=== PATIENT | female | born 1945 | race African-American/Black ===

== ENCOUNTER 2022-10-16 09:15 | Inpatient (IN) ==
[2022-10-16 09:37] LABS: ABS Basophils 0.1 10^3/uL (0.0-0.1); ABS Eosinophils 0.1 10^3/uL (0.0-0.5); ABS Lymphocytes 1.4 10^3/uL (1.0-4.8); ABS Neutrophils 6.2 10^3/uL (1.5-7.6); Eosinophil % 0.8 %; Hematocrit 36.8 % (35-45); Hemoglobin 12.3 g/dL (11.5-14.3); Lymphocyte % 16.2 %; Mean Corpuscular Hemoglobin 30.1 pg (27-33); Mean Corpuscular Hgb Conc 33.5 g/dL (31-36); Mean Corpuscular Volume 89.8 fL (80-97); Mean Platelet Volume 8.9 fL (7.5-11.2); Platelet Count 307 10^3/uL (150-450); Red Cell Distribution Width 12.7 % (12-17); White Blood Count 8.7 10^3/uL (3.8-11.8)
[2022-10-16 09:45] LABS: INR 1.06 (0.88-1.18)
[2022-10-16 09:55] LABS: Albumin 4.1 g/dL (3.2-5.2); Albumin/Globulin Ratio 1.4 (1-3); Calcium 10.1 mg/dL (8.6-10.3); Creatinine, Serum 1.16 mg/dL (0.51-0.95); Potassium 3.4 mmol/L (3.5-5.0); Total Bilirubin 1.5 mg/dL (0.2-1.0); Total Protein 7.1 g/dL (6.4-8.9)
[2022-10-16] MEDS ORDERED: Heparin DRIP 25,000 UNITS BAG 25,000 UNITS/500 ML BAG ONE (10:39)
[2022-10-16] MEDS ORDERED: Heparin DRIP 25,000 UNITS BAG 25,000 UNITS/500 ML BAG IV SCH (10:45)
[2022-10-16] MEDS ORDERED: Heparin 5000 UNITS/ML 1 mL VIAL IV SCH (11:00)
[2022-10-16 11:11] LABS: Creatinine, Serum 1.14 mg/dL (0.51-0.95)
[2022-10-16] MEDS ORDERED: Flumazenil 0.5 mg/5 ml 0.1 MG/ML 5 ml VIAL IV PRN (11:24)
[2022-10-16] MEDS ORDERED: Midazolam 10 mg/10 ml VIAL 1 mg/ml 10 ml VIAL (10 mg) IV SLOW PU ONE (11:24)
[2022-10-16] MEDS ORDERED: Naloxone 0.4 mg VIAL 0.4 mg/ml 1 ml VIAL IV PUSH PRN (11:24)
[2022-10-16] MEDS ORDERED: fentaNYL 100 mcg/2 ml 50 MCG/ML VIAL IV SLOW PU ONE (11:24)
[2022-10-16] MEDS ORDERED: fentaNYL 100 mcg/2 ml 50 MCG/ML VIAL ONE ×2 (11:26→12:33)
[2022-10-16] MEDS ORDERED: Midazolam 5 mg/5 ml VIAL 1 mg/ml 5 ml VIAL (5 mg) ONE (11:26)
[2022-10-16] MEDS ORDERED: niCARdipine 0.1MG/ML IVPREMIX 20 MG/200 ML BAG IV ONE (11:27)
[2022-10-16] MEDS ORDERED: Heparin 2 UNITS/ML 1000 mls 3,000 ML IV ONE (11:27)
[2022-10-16] MEDS ORDERED: Lidocaine 1% MPF 5 ML VIAL ONE ×2 (11:27→12:31)
[2022-10-16] MEDS ORDERED: nitroGLYCERIN DRIP 25,000 MCG/250 ML BTL ONE (11:27)
[2022-10-16] MEDS ORDERED: Iohexol 350 (CONTRAST) 200 ML MDV IV ONE (11:27)
[2022-10-16] MEDS ORDERED: Heparin 1,000 UNIT/ML 10 ml (10,000 UNITS) CATHLAB/DIALYSIS ONE (12:07)
[2022-10-16] MEDS ORDERED: Eptifibatide IV (Load dose) 2 MG/ML 10 ml VIAL ONE ×2 (12:23→13:01)
[2022-10-16] MEDS ORDERED: Iohexol 350 (CONTRAST) 100 ML PAK IV ONE (13:03)
[2022-10-16] MEDS ORDERED: Ondansetron 4 mg VIAL 2 MG/ML 2 ml VIAL IV PRN (14:00)
[2022-10-16] MEDS: NS 0.9% 1000 ml BAG 1,000 ML IV SCH (16:06)
[2022-10-17] MEDS ORDERED: Polyethylene Glycol 3350 17 GM PACKET ONE (01:27)
[2022-10-17] MEDS: Polyethylene Glycol 3350 17 GM PACKET PO SCH ×2 (01:32→11:01)
[2022-10-17] MEDS: NS 0.9% 1000 ml BAG 1,000 ML IV SCH (02:54)
[2022-10-17 04:50] LABS: ABS Eosinophils 0.1 10^3/uL (0.0-0.5); ABS Lymphocytes 1.1 10^3/uL (1.0-4.8); ABS Monocytes 1.1 10^3/uL (0.0-0.9); ABS Neutrophils 6.8 10^3/uL (1.5-7.6); Eosinophil % 1.3 %; Hematocrit 28.9 % (35-45); Hemoglobin 9.9 g/dL (11.5-14.3); Lymphocyte % 12.5 %; Mean Corpuscular Hemoglobin 30.5 pg (27-33); Mean Corpuscular Hgb Conc 34.1 g/dL (31-36); Mean Corpuscular Volume 89.6 fL (80-97); Mean Platelet Volume 8.6 fL (7.5-11.2); Platelet Count 243 10^3/uL (150-450); Red Blood Count 3.23 10^6/uL (3.63-4.92); Red Cell Distribution Width 12.5 % (12-17); White Blood Count 9.2 10^3/uL (3.8-11.8)
[2022-10-17 05:06] LABS: Calcium 7.9 mg/dL (8.6-10.3); Creatinine, Serum 0.68 mg/dL (0.51-0.95); Magnesium 1.4 mg/dL (1.9-2.7); Potassium 2.9 mmol/L (3.5-5.0); eGFR CKD-EPI 88.5 (>60)
[2022-10-17] MEDS ORDERED: Magnesium Sulfate IV 3 GM in NS 0.9% 100 ml BAG 100 ML IVPB ONE (05:33)
[2022-10-17] MEDS: KCL 20 MEQ/100 ML IVPREMIX 20 MEQ/100 ML BAG IV SCH ×3 (06:00→12:43)
[2022-10-17 07:59] LABS: Albumin 3.1 g/dL (3.2-5.2); Albumin/Globulin Ratio 1.4 (1-3); Globulin 2.2 g/dL (2-4); Total Bilirubin 1.5 mg/dL (0.2-1.0); Total Protein 5.3 g/dL (6.4-8.9)
[2022-10-17 13:06] LABS: ABS Eosinophils 0.1 10^3/uL (0.0-0.5); ABS Lymphocytes 1.2 10^3/uL (1.0-4.8); ABS Neutrophils 9.9 10^3/uL (1.5-7.6); Eosinophil % 0.8 %; Hematocrit 32.5 % (35-45); Hemoglobin 10.5 g/dL (11.5-14.3); Lymphocyte % 9.8 %; Mean Corpuscular Hemoglobin 29.3 pg (27-33); Mean Corpuscular Hgb Conc 32.2 g/dL (31-36); Mean Corpuscular Volume 90.9 fL (80-97); Mean Platelet Volume 8.9 fL (7.5-11.2); Platelet Count 279 10^3/uL (150-450); Red Blood Count 3.58 10^6/uL (3.63-4.92); Red Cell Distribution Width 12.7 % (12-17); White Blood Count 12.2 10^3/uL (3.8-11.8)
[2022-10-17 17:38] LABS: Ferritin 333.8 ng/mL (11-307)
[2022-10-18 05:43] LABS: ABS Basophils 0.1 10^3/uL (0.0-0.1); ABS Eosinophils 0.2 10^3/uL (0.0-0.5); ABS Monocytes 1.1 10^3/uL (0.0-0.9); ABS Neutrophils 6.2 10^3/uL (1.5-7.6); Eosinophil % 2.4 %; Hemoglobin 9.9 g/dL (11.5-14.3); Lymphocyte % 20.9 %; Mean Corpuscular Hemoglobin 29.8 pg (27-33); Mean Corpuscular Volume 90.3 fL (80-97); Platelet Count 256 10^3/uL (150-450); Red Blood Count 3.32 10^6/uL (3.63-4.92); Red Cell Distribution Width 12.8 % (12-17); White Blood Count 9.6 10^3/uL (3.8-11.8)
[2022-10-18 06:00] LABS: Albumin 3.4 g/dL (3.2-5.2); Albumin/Globulin Ratio 1.2 (1-3); Calcium 8.5 mg/dL (8.6-10.3); Creatinine, Serum 0.84 mg/dL (0.51-0.95); Globulin 2.8 g/dL (2-4); Potassium 4.1 mmol/L (3.5-5.0); Total Bilirubin 1.6 mg/dL (0.2-1.0); Total Protein 6.2 g/dL (6.4-8.9); eGFR CKD-EPI 70.6 (>60)
[2022-10-18] MEDS: Polyethylene Glycol 3350 17 GM PACKET PO SCH (09:22)
[2022-10-19 06:18] LABS: ABS Basophils 0.1 10^3/uL (0.0-0.1); ABS Eosinophils 0.2 10^3/uL (0.0-0.5); ABS Lymphocytes 1.9 10^3/uL (1.0-4.8); ABS Monocytes 0.9 10^3/uL (0.0-0.9); ABS Neutrophils 4.8 10^3/uL (1.5-7.6); ABS Nucleated RBC 0.02 10^3/ul; Eosinophil % 2.4 %; Hematocrit 28.7 % (35-45); Hemoglobin 9.6 g/dL (11.5-14.3); Lymphocyte % 24.1 %; Mean Corpuscular Hemoglobin 30.1 pg (27-33); Mean Corpuscular Hgb Conc 33.5 g/dL (31-36); Mean Platelet Volume 9.2 fL (7.5-11.2); Nucleated Red Blood Cells % 0.2 /100 WBC (0.0-0.4); Platelet Count 254 10^3/uL (150-450); Red Blood Count 3.19 10^6/uL (3.63-4.92); Red Cell Distribution Width 12.5 % (12-17); White Blood Count 7.8 10^3/uL (3.8-11.8)
[2022-10-19 06:33] LABS: Calcium 8.8 mg/dL (8.6-10.3); Creatinine, Serum 0.93 mg/dL (0.51-0.95); Magnesium 1.8 mg/dL (1.9-2.7); Potassium 4.1 mmol/L (3.5-5.0); eGFR CKD-EPI 62.5 (>60)
[2022-10-19] MEDS ORDERED: Magnesium Sulfate IV 3 GM in NS 0.9% 100 ml BAG 100 ML IVPB ONE (07:03)
[2022-10-19] MEDS: Polyethylene Glycol 3350 17 GM PACKET PO SCH (08:24)
[2022-10-19] MEDS ORDERED: Lactated Ringers 1000 ml BAG 1,000 ML IV ONE ×2 (08:43→23:50)
[2022-10-19] MEDS ORDERED: Iron Sucrose 200 MG in NS 0.9% 100 ml BAG 100 ML IVPB SCH (09:00)
[2022-10-19] MEDS ORDERED: fentaNYL 100 mcg/2 ml 50 MCG/ML VIAL ONE (14:37)
[2022-10-19] MEDS ORDERED: Midazolam 10 mg/10 ml VIAL 1 mg/ml 10 ml VIAL (10 mg) ONE (14:37)
[2022-10-19 16:02] VITALS: BP 130/64
[2022-10-19] MEDS ORDERED: Midazolam 10 mg/10 ml VIAL 1 mg/ml 10 ml VIAL (10 mg) IV SLOW PU ONE (23:50)
[2022-10-19] MEDS ORDERED: fentaNYL 100 mcg/2 ml 50 MCG/ML VIAL IV SLOW PU ONE (23:50)
[2022-10-19] MEDS ORDERED: Lidocaine 2% JELLY 6 ML Topical TOPICAL PRN (23:50)
== END 2022-10-19 17:20 | disposition home or self-care (01) | DRG 229 ==
LOC: ED 09:15 → CHICATH 11:33 → SUATTDRO 14:25 → ICU 14:25 → MEDTELE 10-17 19:44
PROVIDERS: ADMIT Internal Medicine; ATTEND Internal Medicine

== ENCOUNTER 2023-07-01 21:19 | Observation (INO) ==
[2023-07-01 21:50] LABS: ABS Eosinophils 0.1 10^3/uL (0.0-0.5); ABS Lymphocytes 1.9 10^3/uL (1.0-4.8); ABS Monocytes 0.8 10^3/uL (0.0-0.9); ABS Neutrophils 3.8 10^3/uL (1.5-7.6); ABS Nucleated RBC 0.01 10^3/ul; Hematocrit 38.8 % (35-45); Hemoglobin 12.5 g/dL (11.5-14.3); Lymphocyte % 28.1 %; Mean Corpuscular Hemoglobin 29.3 pg (27-33); Mean Corpuscular Hgb Conc 32.3 g/dL (31-36); Mean Corpuscular Volume 90.7 fL (80-97); Mean Platelet Volume 10.1 fL (7.5-11.2); Nucleated Red Blood Cells % 0.1 %/100WBC (0.0-0.8); Platelet Count 193 10^3/uL (150-450); Red Blood Count 4.28 10^6/uL (3.63-4.92); Red Cell Distribution Width 13.2 % (12-17); White Blood Count 6.6 10^3/uL (3.8-11.8)
[2023-07-01 22:01] LABS: INR 1.24 (0.83-1.13)
[2023-07-01 22:52] LABS: Albumin 4.2 g/dL (3.2-5.2); Albumin/Globulin Ratio 1.8 (1-3); Calcium 8.9 mg/dL (8.6-10.3); Creatinine, Serum 1.1 mg/dL (0.51-0.95); Globulin 2.3 g/dL (2-4); Potassium 4.2 mmol/L (3.5-5.0); Total Protein 6.5 g/dL (6.4-8.9); eGFR CKD-EPI 50.8 (>60)
[2023-07-02 00:38] LABS: High Sensitivity Troponin 1 Hr 81 pg/mL (<15)
[2023-07-02] MEDS ORDERED: Ondansetron 4 mg VIAL 2 MG/ML 2 ml VIAL IV PRN (00:42)
[2023-07-02] MEDS ORDERED: Albuterol HFA INHALER 8 gm MDI INH PRN (01:38)
[2023-07-02] MEDS: Furosemide 20 mg/2 ml IV VIAL IV ONE (02:29)
[2023-07-02] MEDS: Mometasone/Formoter 200/5 MDI INH SCH (08:38)
[2023-07-02] MEDS: Enoxaparin 40 MG/0.4 ML SYR SUBCUT SCH (10:34)
[2023-07-03 06:43] LABS: Calcium 9.2 mg/dL (8.6-10.3); Creatinine, Serum 1.21 mg/dL (0.51-0.95); Magnesium 1.6 mg/dL (1.9-2.7); Potassium 3.7 mmol/L (3.5-5.0); eGFR CKD-EPI 45.3 (>60)
[2023-07-03] MEDS ORDERED: Regadenoson 0.4 MG/5 ML SYRINGE ONE (07:52)
[2023-07-03] MEDS ORDERED: Magnesium Sulfate 2 gm BAG 2 GM/50 ML BAG ONE (10:29)
[2023-07-03] MEDS: Magnesium Sulfate 2 gm BAG 2 GM/50 ML BAG IVPB ONE ×2 (10:36→11:46)
[2023-07-03 18:39] LABS: Urine Appearance Clear; Urine Bilirubin Negative (Negative); Urine Blood Negative (Negative); Urine Color Light-Yellow; Urine Glucose Negative (Negative); Urine Ketones Negative (Negative); Urine Nitrite Negative (Negative); Urine Protein Negative (Negative); Urine Specific Gravity 1.013 (1.002-1.030); Urine Urobilinogen Negative (Negative)
[2023-07-03 18:45] LABS: Urine Bacteria Absent /HPF (Absent); Urine Red Blood Cell Trace(0-2/hpf) /HPF (0-Trace); Urine Squamous Epithelial Cell Present /HPF (Absent); Urine White Blood Cell Trace(0-5/hpf) /HPF (0-Trace)
[2023-07-04 06:32] LABS: Calcium 9.2 mg/dL (8.6-10.3); Creatinine, Serum 0.99 mg/dL (0.51-0.95); Magnesium 2.1 mg/dL (1.9-2.7); Potassium 3.7 mmol/L (3.5-5.0); eGFR CKD-EPI 57.6 (>60)
[2023-07-04 13:06] VITALS: BP 120/60
== END 2023-07-04 15:10 | disposition home or self-care (01) ==
LOC: EDHOLD 21:19 → ED 21:19 → SUATTDRO 07-02 00:42 → MEDTELE 07-02 01:46
PROVIDERS: ADMIT Student in an Organized Health Care Education/Training Program; ATTEND Internal Medicine

== ENCOUNTER 2023-11-25 13:30 | Inpatient (IN) ==
[2023-11-25 13:58] LABS: ABS Eosinophils 0.1 10^3/uL (0.0-0.5); ABS Lymphocytes 1.4 10^3/uL (1.0-4.8); ABS Monocytes 0.8 10^3/uL (0.0-0.9); ABS Neutrophils 3.9 10^3/uL (1.5-7.6); ABS Nucleated RBC 0.01 10^3/ul; Eosinophil % 1.6 %; Hematocrit 38.2 % (35-45); Hemoglobin 12.5 g/dL (11.5-14.3); Lymphocyte % 22.5 %; Mean Corpuscular Hemoglobin 29.5 pg (27-33); Mean Corpuscular Hgb Conc 32.8 g/dL (31-36); Mean Platelet Volume 9.9 fL (7.5-11.2); Nucleated Red Blood Cells % 0.1 %/100WBC (0.0-0.8); Platelet Count 193 10^3/uL (150-450); Red Blood Count 4.24 10^6/uL (3.63-4.92); Red Cell Distribution Width 13.5 % (12-17); White Blood Count 6.2 10^3/uL (3.8-11.8)
[2023-11-25 14:13] LABS: INR 1.21 (0.85-1.14)
[2023-11-25 14:34] LABS: Albumin 4.2 g/dL (3.2-5.2); Calcium 9.4 mg/dL (8.6-10.3); Creatinine, Serum 1.13 mg/dL (0.51-0.95); Globulin 2.1 g/dL (2-4); Potassium 4.1 mmol/L (3.5-5.0); Total Protein 6.3 g/dL (6.4-8.9); eGFR CKD-EPI 49.2 (>60)
[2023-11-25 16:45] LABS: High Sensitivity Troponin 1 Hr 48 pg/mL (<15)
[2023-11-25] MEDS: cefTRIAXone 1 gm/50 mL D5W 1 GM/50 ML BAG IV ONE (19:19)
[2023-11-25] MEDS: Azithromycin 500 mg/250 ml NS 500 MG/250 ML BAG IVPB ONE (19:40)
[2023-11-25] MEDS ORDERED: Albuterol HFA INHALER 8 gm MDI INH PRN (21:34)
[2023-11-25] MEDS ORDERED: Mometasone/Formoter 200/5 MDI INH SCH (22:00)
[2023-11-25] MEDS: Enoxaparin 30 MG/0.3 ML SYR SUBCUT SCH (22:23)
[2023-11-25] MEDS: Furosemide 20 mg/2 ml IV VIAL IV SCH (22:40)
[2023-11-25] MEDS: Enoxaparin 40 MG/0.4 ML SYR SUBCUT SCH (22:40)
[2023-11-26] MEDS ORDERED: Azithromycin 500 mg/250 ml NS 500 MG/250 ML BAG IVPB SCH ×2 (03:00→19:30)
[2023-11-26 06:34] LABS: Hematocrit 38.3 % (35-45); Hemoglobin 12.2 g/dL (11.5-14.3); Mean Corpuscular Hemoglobin 28.7 pg (27-33); Mean Corpuscular Hgb Conc 31.8 g/dL (31-36); Mean Corpuscular Volume 90.2 fL (80-97); Platelet Count 190 10^3/uL (150-450); Red Blood Count 4.24 10^6/uL (3.63-4.92); Red Cell Distribution Width 13.3 % (12-17); White Blood Count 7.9 10^3/uL (3.8-11.8)
[2023-11-26 07:07] LABS: Calcium 8.5 mg/dL (8.6-10.3); Creatinine, Serum 1.12 mg/dL (0.51-0.95); Magnesium 1.9 mg/dL (1.9-2.7); Potassium 3.5 mmol/L (3.5-5.0); eGFR CKD-EPI 49.7 (>60)
[2023-11-26] MEDS: Mometasone/Formoter 200/5 MDI INH SCH (07:13)
[2023-11-26] MEDS: KCL 20 MEQ/100 ML IVPREMIX 20 MEQ/100 ML BAG IV SCH (15:13)
[2023-11-26] MEDS ORDERED: cefTRIAXone 1 gm/50 mL D5W 1 GM/50 ML BAG IV SCH (18:30)
[2023-11-27 05:52] LABS: Hematocrit 37.3 % (35-45); Hemoglobin 12.1 g/dL (11.5-14.3); Mean Corpuscular Hemoglobin 29.5 pg (27-33); Mean Corpuscular Hgb Conc 32.5 g/dL (31-36); Mean Corpuscular Volume 90.9 fL (80-97); Red Blood Count 4.11 10^6/uL (3.63-4.92); Red Cell Distribution Width 13.2 % (12-17); White Blood Count 5.8 10^3/uL (3.8-11.8)
[2023-11-27 06:10] LABS: Calcium 8.8 mg/dL (8.6-10.3); Creatinine, Serum 1.11 mg/dL (0.51-0.95); Magnesium 1.9 mg/dL (1.9-2.7); Potassium 4.1 mmol/L (3.5-5.0); eGFR CKD-EPI 50.2 (>60)
[2023-11-27 07:04] LABS: ABS Basophils 0.1 10^3/uL (0.0-0.1); ABS Eosinophils 0.2 10^3/uL (0.0-0.5); ABS Lymphocytes 1.9 10^3/uL (1.0-4.8); ABS Monocytes 0.8 10^3/uL (0.0-0.9); ABS Neutrophils 2.9 10^3/uL (1.5-7.6); Mean Platelet Volume 9.9 fL (7.5-11.2); Platelet Count 181 10^3/uL (150-450)
[2023-11-27] MEDS: Furosemide 20 mg/2 ml IV VIAL IV ONE (11:13)
[2023-11-28 06:04] LABS: Calcium 8.9 mg/dL (8.6-10.3); Creatinine, Serum 1.05 mg/dL (0.51-0.95); Magnesium 1.8 mg/dL (1.9-2.7); Potassium 3.6 mmol/L (3.5-5.0); eGFR CKD-EPI 53.7 (>60)
[2023-11-28 06:14] LABS: Hematocrit 37.7 % (35-45); Hemoglobin 12.4 g/dL (11.5-14.3); Mean Corpuscular Hemoglobin 29.7 pg (27-33); Mean Corpuscular Hgb Conc 32.8 g/dL (31-36); Mean Corpuscular Volume 90.6 fL (80-97); Red Blood Count 4.16 10^6/uL (3.63-4.92); Red Cell Distribution Width 13.1 % (12-17)
[2023-11-28 07:27] LABS: ABS Eosinophils 0.2 10^3/uL (0.0-0.5); ABS Lymphocytes 1.9 10^3/uL (1.0-4.8); ABS Monocytes 0.8 10^3/uL (0.0-0.9); ABS Neutrophils 3.1 10^3/uL (1.5-7.6); Eosinophil % 3.4 %; Large Platelets Present; Lymphocyte % 31.6 %; Mean Platelet Volume 9.6 fL (7.5-11.2); Nucleated Red Blood Cells % 0.1 %/100WBC (0.0-0.8); Platelet Count 196 10^3/uL (150-450)
[2023-11-28] MEDS: Magnesium Sulfate 2 gm BAG 2 GM/50 ML BAG IVPB ONE (08:23)
[2023-11-28] MEDS ORDERED: Regadenoson 0.4 MG/5 ML SYRINGE ONE (12:17)
[2023-11-28] MEDS ORDERED: Aminophylline 25 MG/ML VIAL ONE (12:17)
[2023-11-28] MEDS: Sulfur Hexaflouride MICROSPHR 25 MG VIAL IV PRN (16:46)
[2023-11-28 17:50] VITALS: BP 110/59
== END 2023-11-28 19:25 | disposition home or self-care (01) | DRG 291 ==
LOC: ED 13:30 → EDHOLD 19:44 → SUATTDRO 19:44 → MED 21:09
PROVIDERS: ADMIT Hospitalist; ATTEND Student in an Organized Health Care Education/Training Program